=== PATIENT | female | born 1995 | race Asian ===

== ENCOUNTER 2017-02-15 19:04 | Emergency (ER) | payer OTHER ==
[~2017-02-15] VITALS: Ht 157.5 cm; Wt 101.2 kg
[2017-02-15 19:44] LABS: PLATELET COUNT 322 K/uL (152-353)
[2017-02-15 20:26] VITALS: BP 136/72; TEMP 98.3
== END 2017-02-15 21:25 | disposition home or self-care (01) ==
LOC: ED 19:04
DX: L05.01 Pilonidal cyst with abscess (principal)
CPT/HCPCS: 36415; 85027; 96372; 99283; J1885

== ENCOUNTER 2021-09-28 11:58 | Emergency (ER) | payer OTHER ==
[~2021-09-28] VITALS: Ht 157.5 cm; Wt 101.6 kg
[2021-09-28 12:05] VITALS: BP 136/71; TEMP 97.8
== END 2021-09-28 13:02 | disposition home or self-care (01) ==
LOC: ED 11:58
DX: M25.532 Pain in left wrist (principal)
CPT/HCPCS: 99282

== ENCOUNTER 2022-08-21 11:47 | Emergency (ER) | payer BC ==
[~2022-08-21] VITALS: Ht 157.5 cm; Wt 101.6 kg
[2022-08-21 11:55] VITALS: BP 120/56; TEMP 98.3
== END 2022-08-21 13:25 | disposition home or self-care (01) ==
LOC: ED 11:47
DX: J20.9 Acute bronchitis, unspecified (principal); Z20.822 Contact with and (suspected) exposure to COVID-19
CPT/HCPCS: 87502; 87635; 87651; 99283; U0003